=== PATIENT | male | born 1995 | race Caucasian/White ===

== ENCOUNTER → 2018-08-18 | Outpatient (CLI) | payer BC ==
--- NOTE | 2018-08-18 13:09 | KCIC ---
EXAM: Bilateral knees, 3 views. HISTORY: Pain. COMPARISON: None. FINDINGS: 3 views of the knees are obtained. There is no fracture, dislocation or subluxation. There is no joint effusion. IMPRESSION: No acute osseous finding. Electronically signed by: Luz Elena Eric MD (08/18/2018 1:05 PM) [place] [id number]
== END | disposition home or self-care (01) ==
LOC: KCIC 11:42
DX: M25.562 Pain in left knee (principal); M25.561 Pain in right knee; M94.0 Chondrocostal junction syndrome [Tietze]
CPT/HCPCS: 73562